=== PATIENT | female | born 1955 | race Caucasian/White ===

== ENCOUNTER 2017-11-30 15:41 | Outpatient (CLI) | payer OTHER | END 2017-11-30 15:42 | disposition home or self-care (01) | LOC: BICMAMMO 15:41 | PROVIDERS: ATTEND Internal Medicine Gastroenterology | DX: Z12.31 Encounter for screening mammogram for malignant neoplasm of breast (principal); N63.10 Unspecified lump in the right breast, unspecified quadrant | CPT/HCPCS: 77063; 77067 ==

== ENCOUNTER 2017-12-13 13:42 | Outpatient (CLI) | payer OTHER | END 2017-12-13 13:43 | disposition home or self-care (01) | LOC: BICMAMMO 13:42 | PROVIDERS: ATTEND Internal Medicine Gastroenterology | DX: R92.2 Inconclusive mammogram (principal); N63.10 Unspecified lump in the right breast, unspecified quadrant | CPT/HCPCS: G0279 ==

== ENCOUNTER → 2017-12-14 | Day surgery (SDC) | payer OTHER | LOC: BICULT 10:29 | PROVIDERS: ATTEND Internal Medicine | PROC: 0HBT3ZX Excision of Right Breast, Percutaneous Approach, Diagnostic (ICD-10-PCS; principal; 2017-12-14) | DX: C50.411 Malignant neoplasm of upper-outer quadrant of right female breast (principal) | CPT/HCPCS: 19100; 76942; 88305 ==

== ENCOUNTER 2018-03-27 10:28 | Outpatient (CLI) | payer OTHER, BC ==
--- NOTE | 2018-03-27 13:55 | ULT ---
GALLBLADDER ULTRASOUND: Date: 03/27/18 HISTORY: Right upper quadrant pain. COMPARISON: None. TECHNIQUE: Utilizing a multihertz transducer, sonographic imaging of the right upper quadrant is performed in th e longitudinal and transverse plane. FINDINGS: The visualized pancreas has a normal echotexture. Hepatic parenchyma has a heterogeneous appearance, which may be due to hepatic steatosis or hepatocel lular disease. Subsequent evaluation for hepatic masses and intrahepatic biliary dilatation is limite d. No sonographic evidence of cholelithiasis, gallbladder wall thickening, or pericholecystic fluid. Neg ative Everett's sign. Common bile duct diameter is 0.2 cm. Main portal vein is patent. Appropriate direction of flow. No hydronephrosis. There is right renal cortical thinning. Right kidney measures 5.9 x 4.2 x 10.8 cm. IMPRESSION: 1. Increased echogenicity of the liver which may be due to hepatic steatosis or hepatocellular disea se. 2. No sonographic evidence of cholelithiasis or cholecystitis. POS: [facility]
== END 2018-03-27 10:29 | disposition home or self-care (01) ==
LOC: ULT 10:28
PROVIDERS: ATTEND Radiology Radiation Oncology
DX: R10.11 Right upper quadrant pain (principal); Z85.3 Personal history of malignant neoplasm of breast
CPT/HCPCS: 76705

== ENCOUNTER 2018-04-03 14:23 | Outpatient (CLI) | payer BC | END 2018-04-03 14:24 | disposition home or self-care (01) | LOC: BICMAMMO 14:23 | PROVIDERS: ATTEND Internal Medicine Hematology & Oncology | DX: N95.9 Unspecified menopausal and perimenopausal disorder (principal); C50.411 Malignant neoplasm of upper-outer quadrant of right female breast | CPT/HCPCS: 77080 ==

== ENCOUNTER 2018-12-13 14:34 | Outpatient (CLI) | payer BC ==
--- NOTE | 2018-12-18 13:24 | MMO ---
Bilateral MAMMO Bilat Diag DDI+YOSEF. CLINICAL HISTORY: Patient is 63 years old and is seen for diagnostic exam. The patient has no family history of breast cancer. The patient has a history of malignant (generic) in the right breast in 2018. The patient has a history of right Ultrasound Guided Core Biopsy in November, and right Lumpectomy in 2018 - malignant. VIEWS: The views performed were: bilateral craniocaudal with tomosynthesis; bilateral mediolateral oblique with tomosynthesis; and bilateral mediolateral. FILMS COMPARED: The present examination has been compared to prior imaging studies performed at [facility] on 06/07/2003, 09/24/2004, 03/05/2009, 03/25/2011, 08/02/2012, 08/16/2013, 11/27/2014, 07/14/2016, 11/30/2017 and 12/13/2017, and at [facility] on 04/05/1996, 07/12/2002 and 09/25/2007. MAMMOGRAM FINDINGS: There are scattered fibroglandular densities. Finding 1: There are post operative changes seen in the upper-outer region of the right breast. Finding 2: There are benign appearing calcifications seen in the left breast. There are no suspicious masses, suspicious calcifications, or new areas of architectural distortion. IMPRESSION: THERE IS NO MAMMOGRAPHIC EVIDENCE OF MALIGNANCY. A ROUTINE FOLLOW-UP MAMMOGRAM IN 1 YEAR IS RECOMMENDED. THE RESULTS OF THIS EXAM WERE SENT TO THE PATIENT. ACR BI-RADS Category 2 - Benign finding MAMMOGRAPHY NOTE: 1. A negative mammogram report should not delay a biopsy if a dominant of clinically suspicious mass is present. 2. Approximately 10% to 15% of breast cancers are not detected by mammography. 3. Adenosis and dense breasts may obscure an underlying neoplasm.
== END 2018-12-13 14:35 | disposition home or self-care (01) ==
LOC: BICMAMMO 14:34
PROVIDERS: ATTEND Internal Medicine Hematology & Oncology
DX: C50.911 Malignant neoplasm of unspecified site of right female breast (principal)
CPT/HCPCS: 77066; G0279

== ENCOUNTER 2019-12-17 14:41 | Outpatient (CLI) | payer MEDICARE, OTHER ==
--- NOTE | 2019-12-17 15:08 | MMO ---
Bilateral MAMMO Bilat Diag DDI+YOSEF. CLINICAL HISTORY: Patient is 64 years old and is seen for diagnostic exam. The patient has no family history of breast cancer. The patient has a history of malignant (generic) in the right breast in 2018. The patient has a history of right Ultrasound Guided Core Biopsy in November, and right Lumpectomy in 2018 - malignant. VIEWS: The views performed were: bilateral craniocaudal with tomosynthesis; bilateral mediolateral oblique with tomosynthesis; and bilateral mediolateral with tomosynthesis. FILMS COMPARED: The present examination has been compared to prior imaging studies performed at [facility] on 11/30/2017, 12/13/2017 and 12/13/2018. This study has been interpreted with the assistance of computer-aided detection. MAMMOGRAM FINDINGS: There are scattered fibroglandular densities. There is a post-surgical scar seen in the right breast. There are no suspicious masses, suspicious calcifications, or new areas of architectural distortion. IMPRESSION: THERE IS NO MAMMOGRAPHIC EVIDENCE OF MALIGNANCY. A ROUTINE FOLLOW-UP MAMMOGRAM IN 1 YEAR IS RECOMMENDED. THE RESULTS OF THIS EXAM WERE SENT TO THE PATIENT. ACR BI-RADS Category 2 - Benign finding MAMMOGRAPHY NOTE: 1. A negative mammogram report should not delay a biopsy if a dominant of clinically suspicious mass is present. 2. Approximately 10% to 15% of breast cancers are not detected by mammography. 3. Adenosis and dense breasts may obscure an underlying neoplasm. Reported by: Rafael ROUSE Electonically Signed: [id number]
--- NOTE | 2019-12-17 15:20 | BD ---
BONE DENSITOMETRY: INDICATION: Postmenopausal screening. FINDINGS: Lumbar Spine: BMD (g/cm2) L1 0.898 T-Score: -0.8 L2 0.988 T-Score: -0.4 L3 0.970 T-Score: -1.0 L4 0.992 T-Score: -0.6 L1-L4 0.963 T-Score: -0.8 Femoral Neck: 0.758 T-Score: -0.8 Total Femur: 0.935 T-Score: -0.1 Impression: Bone mineral density of the lumbar spine and femoral neck are both within normal range. POS: [facility]
== END 2019-12-17 14:42 | disposition home or self-care (01) ==
LOC: BICMAMMO 14:41
PROVIDERS: ATTEND Internal Medicine
DX: N95.9 Unspecified menopausal and perimenopausal disorder (principal); Z85.3 Personal history of malignant neoplasm of breast
CPT/HCPCS: 77066; 77080; G0279

== ENCOUNTER 2020-03-17 07:57 | Outpatient (CLI) | payer MEDICARE, OTHER ==
--- NOTE | 2020-03-17 08:15 | ULT ---
Exam: Abdominal aorta ultrasound HISTORY: Abdominal aorta screening COMPARISON: none TECHNIQUE: Grayscale, color flow, Doppler imaging and spectral waveform analysis performed the aorta FINDINGS: Visualized aorta is patent Proximal aorta has a diameter of 1.6 x 2.3 cm Mid abdominal aorta is diameter of 1.6 x 1.4 cm Distal abdominal aorta diameter 1.5 x 1.4 cm Right iliac artery measures 0.8 cm Left iliac artery measures 0.8 cm IMPRESSION: No aneurysm
== END 2020-03-17 07:58 | disposition home or self-care (01) ==
LOC: BICULT 07:57
PROVIDERS: ATTEND Internal Medicine
DX: Z13.6 Encounter for screening for cardiovascular disorders (principal)
CPT/HCPCS: 76775

== ENCOUNTER 2020-12-18 15:41 | Outpatient (CLI) | payer MEDICARE, OTHER | END 2020-12-18 15:42 | disposition home or self-care (01) | LOC: BICMAMMO 15:41 | PROVIDERS: ATTEND Internal Medicine | DX: Z08 Encounter for follow-up examination after completed treatment for malignant neoplasm (principal); Z85.3 Personal history of malignant neoplasm of breast | CPT/HCPCS: 77066; G0279 ==

== ENCOUNTER 2021-01-15 09:01 | Outpatient (CLI) | payer MEDICARE, OTHER | END 2021-01-15 09:02 | disposition home or self-care (01) | LOC: BICMAMMO 09:01 | PROVIDERS: ATTEND Internal Medicine Hematology & Oncology | DX: Z13.820 Encounter for screening for osteoporosis (principal); M85.89 Other specified disorders of bone density and structure, multiple sites; Z78.0 Asymptomatic menopausal state; T38.6X5A Adverse effect of antigonadotrophins, antiestrogens, antiandrogens, not elsewhere classified, initial encounter | CPT/HCPCS: 77080 ==

== ENCOUNTER 2022-02-15 15:00 | Outpatient (CLI) | payer MEDICARE, OTHER | END 2022-02-15 15:01 | disposition home or self-care (01) | LOC: BICRAD 15:00 | PROVIDERS: ATTEND Internal Medicine | DX: J18.9 Pneumonia, unspecified organism (principal) | CPT/HCPCS: 71046 ==

== ENCOUNTER 2022-12-27 09:19 | Outpatient (CLI) | payer MEDICARE, OTHER | END 2022-12-27 09:20 | disposition home or self-care (01) | LOC: BICMAMMO 09:19 | PROVIDERS: ATTEND Internal Medicine | DX: R92.8 Other abnormal and inconclusive findings on diagnostic imaging of breast (principal); Z78.0 Asymptomatic menopausal state | CPT/HCPCS: 77066; 77080; G0279 ==